=== PATIENT | female | born 1950 | race Two or more races ===

== ENCOUNTER 2025-04-15 04:10 | Inpatient (IN) | payer MEDICARE ==
[~2025-04-15] VITALS: Ht 157.5 cm; Wt 73.3 kg
[2025-04-15 05:25] LABS: PLATELET COUNT (AUTO) 101 K/uL (150-450); RED BLOOD CELL COUNT(AUTO) 3.90 MIL/uL (4.00-5.20); RED CELL DISTRIBUTION WIDTH 12.8 % (11.5-14.5); WHITE BLOOD COUNT (AUTO) 5.1 K/uL (4.5-11.0)
[2025-04-15 05:26] LABS: CALCIUM, TOTAL 9.0 mg/dL (8.8-10.5); CREATININE 1.18 mg/dL (0.60-1.30); GLOMERULAR FILTR. RATE CALC 44 mL/min (>60); GLUCOSE,RANDOM 275 mg/dL (70-110); SODIUM SERUM 139 mmol/L (136-145); UREA NITROGEN, BLOOD 30 mg/dL (7-18)
[2025-04-15 05:35] LABS: TROPONIN I-HIGH SENSITIVITY 7 ng/L (<51)
[2025-04-15 05:50] LABS: LACTIC ACID 1.1 mmol/L (0.4-2.0)
[2025-04-15] MEDS: LevETIRAcetam 1,000 MG in DEXTROSE 5%-WATER 100 ML IV ONE (06:50)
[2025-04-15] MEDS ORDERED: AMLO-258 PO (07:52)
[2025-04-15] MEDS ORDERED: FURO20TA5 PO (07:52)
[2025-04-15] MEDS ORDERED: MELA3TAB89 PO (07:52)
[2025-04-15] MEDS ORDERED: ATOR10TA PO (07:52)
[2025-04-15] MEDS ORDERED: MIRT-89 PO (07:52)
[2025-04-15 09:42] LABS: APPEARANCE,URINE HAZY (CLEAR); GLUCOSE, URINE (UA) >=1000 mg/dL (NEGATIVE); LEUKOCYTE ESTERASE ,URINE LARGE (NEGATIVE); NITRATE,URINE POSITIVE (NEGATIVE); OCCULT BLOOD,URINE NEGATIVE (NEGATIVE); SPECIFIC GRAVITIY, URINE 1.013 (1.003-1.030)
[2025-04-15 09:51] LABS: SQUAMOUS EPITHELIAL CELL,UR Rare /LPF (None Seen)
[2025-04-15 11:00] VITALS: BP 128/53; PULSE 66; RESP 18; TEMP 97.3; O2SAT 98
[2025-04-15 12:00] VITALS: BP 106/60; PULSE 65; RESP 18; TEMP 97.5; O2SAT 99
[2025-04-15] MEDS ORDERED: DEXTROSE 50%-WATER 25 GM/50 ML SYRINGE IVP PRN (13:00)
[2025-04-15] MEDS: INSULIN LISPRO 100 UNITS/ML SQ PRN (13:05)
[2025-04-15] MEDS ORDERED: MAGNESIUM HYDROXIDE SUSPENSION 30 ML UDCUP PO PRN (14:00)
[2025-04-15] MEDS ORDERED: ACETAMINOPHEN 325 MG TABLET PO PRN (14:00)
[2025-04-15] MEDS ORDERED: HYDROCODONE/ACETAMINOPHEN 5-325 MG TABLET PO PRN (14:00)
[2025-04-15] MEDS ORDERED: ZOLPIDEM TARTRATE 5 MG TABLET PO PRN (14:00)
[2025-04-15] MEDS ORDERED: MORPHINE SULFATE 4 MG/ML SYRINGE IVP PRN (14:00)
[2025-04-15] MEDS ORDERED: BISACODYL 10 MG RECTAL RECTAL SUPPOSITORY PR PRN (14:00)
[2025-04-15] MEDS: *CLINICAL-LEVOFLOXACIN IVPB DOSING CLINICAL ONE (14:07)
[2025-04-15] MEDS ORDERED: SODIUM CHLORIDE 0.9% 500 ML IV ONE (15:40)
[2025-04-15] MEDS: LEVOFLOXACIN 750 MG/D5% WATER 150 ML IV SCH (15:57)
[2025-04-15 16:15] VITALS: BP 99/51; PULSE 67; RESP 16; TEMP 97.3; O2SAT 98
[2025-04-15] MEDS: HEPARIN SODIUM,PORCINE 5,000 UNITS/ML VIAL SQ SCH (16:51)
[2025-04-15 17:21] LABS: GLUCOMETER DEV NAME(LOC) 5S.1E; GLUCOSE,POINT OF CARE 231 MG/DL (70-110)
[2025-04-15] MEDS: MELATONIN 3 MG TABLET PO SCH (20:02)
[2025-04-15] MEDS: DOCUSATE SODIUM 100 MG CAPSULE PO SCH (20:02)
[2025-04-15 20:15] LABS: GLUCOMETER DEV NAME(LOC) 5S.1E; GLUCOSE,POINT OF CARE 197 MG/DL (70-110)
[2025-04-16 00:09] VITALS: BP 109/53; PULSE 61; RESP 17; TEMP 97.7; O2SAT 97
[2025-04-16 03:51] LABS: GLUCOMETER DEV NAME(LOC) 5N.2C; GLUCOSE,POINT OF CARE 168 MG/DL (70-110)
[2025-04-16 05:33] VITALS: BP 119/64; PULSE 62; RESP 18; TEMP 97.7; O2SAT 100
[2025-04-16 06:24] LABS: PLATELET COUNT (AUTO) 98 K/uL (150-450); RED BLOOD CELL COUNT(AUTO) 3.76 MIL/uL (4.00-5.20); RED CELL DISTRIBUTION WIDTH 12.6 % (11.5-14.5); WHITE BLOOD COUNT (AUTO) 4.2 K/uL (4.5-11.0)
[2025-04-16 06:38] LABS: CALCIUM, TOTAL 8.4 mg/dL (8.8-10.5); CREATININE 1.14 mg/dL (0.60-1.30); GLOMERULAR FILTR. RATE CALC 46.0 mL/min (>60); GLUCOSE,RANDOM 169.0 mg/dL (70-110); SODIUM SERUM 138.0 mmol/L (136-145); UREA NITROGEN, BLOOD 25.0 mg/dL (7-18)
[2025-04-16 07:47] VITALS: BP 121/49; PULSE 60; RESP 16; TEMP 97.9; O2SAT 97
[2025-04-16] MEDS: FUROSEMIDE 20 MG TABLET PO SCH (08:09)
[2025-04-16] MEDS: ATORVASTATIN CALCIUM 10 MG TABLET PO SCH (08:09)
[2025-04-16] MEDS: MIRTAZAPINE 15 MG TABLET PO SCH (08:09)
[2025-04-16] MEDS: PANTOPRAZOLE SODIUM 40 MG DR TABLET PO SCH (08:09)
[2025-04-16] MEDS ORDERED: ALBUTEROL SULFATE 2.5 MG/0.5 ML NEB SOLUTION NEB PRN (11:00)
[2025-04-16] MEDS ORDERED: IPRATROPIUM BROMIDE 0.5 MG/2.5 ML NEB SOLUTION NEB PRN (11:00)
[2025-04-16 11:26] VITALS: BP 119/60; PULSE 72; RESP 16; TEMP 97.7; O2SAT 99
[2025-04-16 11:31] LABS: GLUCOMETER DEV NAME(LOC) 5N.2C; GLUCOSE,POINT OF CARE 176 MG/DL (70-110)
[2025-04-16 15:42] VITALS: BP 115/55; PULSE 62; RESP 18; TEMP 98.2; O2SAT 98
[2025-04-16 19:11] LABS: GLUCOMETER DEV NAME(LOC) 5N.2C; GLUCOSE,POINT OF CARE 182 MG/DL (70-110)
[2025-04-16 19:49] VITALS: BP 135/74; PULSE 82; RESP 18; TEMP 97.9; O2SAT 98
[2025-04-16] MEDS: ONDANSETRON HCL 4 MG/2 ML VIAL IVP PRN (20:15)
[2025-04-16 20:35] LABS: GLUCOMETER DEV NAME(LOC) 5N.2C; GLUCOSE,POINT OF CARE 217 MG/DL (70-110)
[2025-04-16] MEDS ORDERED: LORazepam 2 MG/ML VIAL IVP PRN (20:45)
[2025-04-17] VITALS (8 sets, daily range): BP systolic 110–159; BP diastolic 53–67; PULSE 60–72; RESP 16–18; TEMP 97.6–98.7; O2SAT 96–98
[2025-04-17 06:33] LABS: PLATELET COUNT (AUTO) 97 K/uL (150-450); RED BLOOD CELL COUNT(AUTO) 3.88 MIL/uL (4.00-5.20); RED CELL DISTRIBUTION WIDTH 12.7 % (11.5-14.5); WHITE BLOOD COUNT (AUTO) 4.5 K/uL (4.5-11.0)
[2025-04-17 06:45] LABS: CALCIUM, TOTAL 8.1 mg/dL (8.8-10.5); CREATININE 1.28 mg/dL (0.60-1.30); GLOMERULAR FILTR. RATE CALC 40.0 mL/min (>60); GLUCOSE,RANDOM 167.0 mg/dL (70-110); SODIUM SERUM 141.0 mmol/L (136-145); UREA NITROGEN, BLOOD 26.0 mg/dL (7-18)
[2025-04-17 06:50] LABS: GLUCOMETER DEV NAME(LOC) 5N.2C; GLUCOSE,POINT OF CARE 169 MG/DL (70-110)
[2025-04-17] MEDS ORDERED: LEVO-72 PO (13:34)
[2025-04-17] MEDS ORDERED: AMLO-257 PO (13:35)
[2025-04-17] MEDS ORDERED: LEVE-71 PO (13:35)
[2025-04-17 17:50] LABS: GLUCOMETER DEV NAME(LOC) 5S.1E; GLUCOSE,POINT OF CARE 236 MG/DL (70-110)
[2025-04-17] MEDS: MIRTAZAPINE 15 MG TABLET PO SCH (21:26)
[2025-04-18 04:00] VITALS: BP 121/90; PULSE 63; RESP 18; TEMP 97.5; O2SAT 97
[2025-04-18 06:47] LABS: PLATELET COUNT (AUTO) 87 K/uL (150-450); RED BLOOD CELL COUNT(AUTO) 3.66 MIL/uL (4.00-5.20); RED CELL DISTRIBUTION WIDTH 12.5 % (11.5-14.5); WHITE BLOOD COUNT (AUTO) 4.2 K/uL (4.5-11.0)
[2025-04-18 06:58] LABS: CALCIUM, TOTAL 8.0 mg/dL (8.8-10.5); CREATININE 1.02 mg/dL (0.60-1.30); GLOMERULAR FILTR. RATE CALC 53.0 mL/min (>60); GLUCOSE,RANDOM 194.0 mg/dL (70-110); SODIUM SERUM 138.0 mmol/L (136-145); UREA NITROGEN, BLOOD 24.0 mg/dL (7-18)
[2025-04-18] MEDS ORDERED: DEXTROSE 50%-WATER 25 GM/50 ML SYRINGE IVP PRN (08:00)
[2025-04-18] MEDS: INSULIN LISPRO 100 UNITS/ML SQ PRN (08:33)
[2025-04-18 09:01] VITALS: BP_SYST 132; BP_DIAS 66; BP_DIAS 98; PULSE 66; PULSE 88; RESP 18; TEMP 97.7; O2SAT 96
[2025-04-18 12:26] LABS: GLUCOMETER DEV NAME(LOC) 6N.2C; GLUCOSE,POINT OF CARE 210 MG/DL (70-110)
[2025-04-18 12:26] LABS: GLUCOMETER DEV NAME(LOC) 6N.2C; GLUCOSE,POINT OF CARE 208 MG/DL (70-110)
[2025-04-18 12:26] LABS: GLUCOMETER DEV NAME(LOC) 6N.2C; GLUCOSE,POINT OF CARE 191 MG/DL (70-110)
[2025-04-18] MEDS ORDERED: SODIUM CHLORIDE 0.9% 1,000 ML ONE (13:30)
[2025-04-18 14:04] LABS: PLATELET COUNT (AUTO) 99 K/uL (150-450); RED BLOOD CELL COUNT(AUTO) 3.87 MIL/uL (4.00-5.20); RED CELL DISTRIBUTION WIDTH 12.8 % (11.5-14.5); WHITE BLOOD COUNT (AUTO) 5.5 K/uL (4.5-11.0)
[2025-04-18 14:14] LABS: CALCIUM, TOTAL 8.2 mg/dL (8.8-10.5); CREATININE 1.04 mg/dL (0.60-1.30); GLOMERULAR FILTR. RATE CALC 51.0 mL/min (>60); GLUCOSE,RANDOM 143.0 mg/dL (70-110); SODIUM SERUM 139.0 mmol/L (136-145); UREA NITROGEN, BLOOD 25.0 mg/dL (7-18)
[2025-04-18 14:25] LABS: ASPARTATE AMINOTRANSFERASE 25.0 U/L (15-37); CHOL/HDL RATIO 3.2 (3.9-5.7); LDL CHOL (CALC.) 77.0 mg/dL (0-130); TOTAL PROTEIN, SERUM 6.9 g/dL (6.4-8.2); TROPONIN I-HIGH SENSITIVITY 5 ng/L (<51)
[2025-04-18 16:00] VITALS: BP 114/73; PULSE 72; RESP 16; TEMP 97.7; O2SAT 97
[2025-04-18 18:41] LABS: GLUCOMETER DEV NAME(LOC) 5S.2E; GLUCOSE,POINT OF CARE 156 MG/DL (70-110)
[2025-04-18 20:08] VITALS: BP 95/33; PULSE 83; RESP 18; TEMP 98.1; O2SAT 98
[2025-04-18 21:20] LABS: GLUCOMETER DEV NAME(LOC) 6N.2C; GLUCOSE,POINT OF CARE 167 MG/DL (70-110)
[2025-04-18 23:44] VITALS: BP 113/46; PULSE 69; RESP 18; TEMP 98.2; O2SAT 99
[2025-04-19 04:51] VITALS: BP 101/47; PULSE 69; RESP 19; TEMP 97.7; O2SAT 98
[2025-04-19 06:15] LABS: GLUCOMETER DEV NAME(LOC) 5S.2E; GLUCOSE,POINT OF CARE 159 MG/DL (70-110)
[2025-04-19 06:16] LABS: GLUCOMETER DEV NAME(LOC) 5S.2E; GLUCOSE,POINT OF CARE 167 MG/DL (70-110)
[2025-04-19 09:19] VITALS: BP 114/53; PULSE 63; RESP 18; TEMP 98.4; O2SAT 98
[2025-04-19 12:06] VITALS: BP 118/60; PULSE 68; RESP 18; TEMP 98.8; O2SAT 100
[2025-04-19 12:30] LABS: GLUCOMETER DEV NAME(LOC) 5N.2C; GLUCOSE,POINT OF CARE 157 MG/DL (70-110)
[2025-04-19 12:45] LABS: GLUCOMETER DEV NAME(LOC) 5S.2E; GLUCOSE,POINT OF CARE 141 MG/DL (70-110)
== END 2025-04-19 15:25 | disposition home or self-care (01) | DRG 100 ==
LOC: EMS 04:10 → EDH 08:20 → 5N 10:15 → 6S 04-18 00:05 → 5N 04-18 16:02
PROVIDERS: ADMIT Internal Medicine; ATTEND Internal Medicine
PROC: 4A00X4Z Measurement of Central Nervous Electrical Activity, External Approach (ICD-10-PCS; principal; 2025-04-16)
DX: G40.901 Epilepsy, unspecified, not intractable, with status epilepticus (principal); G92.8 Other toxic encephalopathy; D61.818 Other pancytopenia; D63.8 Anemia in other chronic diseases classified elsewhere; N39.0 Urinary tract infection, site not specified; E11.65 Type 2 diabetes mellitus with hyperglycemia; I10 Essential (primary) hypertension; F03.90 Unspecified dementia, unspecified severity, without behavioral disturbance, psychotic disturbance, mood disturbance, and anxiety; E78.5 Hyperlipidemia, unspecified; N28.9 Disorder of kidney and ureter, unspecified; Z88.0 Allergy status to penicillin
CPT/HCPCS: 70450; 70496; 70498; 71045; 80048; 80053; 80061; 81001; 82140; 82962; 83036; 83605; 84484; 85025; 85610; 85730; 86850; 86900; 86901; 87077; 87086; 87186; 92610; 93005; 95816; 96365; 99285; J0712; J1644; J1956; J2405; J7030; J7040; J7060; 36415-L1; 36415-TC